=== PATIENT | female | born 1990 | race Caucasian/White ===

== ENCOUNTER 2017-06-29 00:53 | Emergency (ER) | payer OTHER ==
[~2017-06-29] VITALS: Ht 162.6 cm; Wt 86.2 kg
[~2017-06-29 00:53] MED LIST: ANTIVERT PO; FLEXERIL PO; MOBIC PO; NO MEDICATIONS; ZOFRANODT SL
== END 2017-06-29 01:50 | disposition home or self-care (01) ==
LOC: SED 00:53
DX: L02.415 Cutaneous abscess of right lower limb (principal); L03.115 Cellulitis of right lower limb; Z88.0 Allergy status to penicillin; Z23 Encounter for immunization
CPT/HCPCS: 10060; 87070; 87205; 90471; 90715; 96372; 99282